=== PATIENT | male | born 1935 | race Caucasian/White ===

== ENCOUNTER 2018-08-07 16:05 | Emergency (ER) | payer MEDICARE, OTHER, SELFPAY ==
[2018-08-07 16:09] VITALS: BP 215/84; PULSE 82; RESP 20; TEMP 37.1; O2SAT 97; BMI 29.2
--- NOTE | 2018-08-07 16:25 | DI.RAD.S_ITS ---
PROCEDURE: XR CHEST 1V INDICATIONS: chest pain TECHNIQUE: One view of the chest was acquired. COMPARISON: None. FINDINGS: Surgical changes and devices: None. Lungs and pleura: Poor respiratory effort is present. Minimal increased pulmonary vascularity is present. No pleural effusions or pneumothorax. Mediastinum: Mediastinal contours appear normal. Heart size is normal. Bones and chest wall: No suspicious bony lesions. Overlying soft tissues appear unremarkable. IMPRESSION: Minimal increased pulmonary vascularity suggestive of edema. Dictated by: Kacey Olivia M.D. on 08/07/2018 at 16:42 Approved by: Kacey Olivia M.D. on 08/07/2018 at 16:43
[2018-08-07 17:02] VITALS: BP 177/70; PULSE 68; RESP 18; O2SAT 98
--- NOTE | 2018-08-07 17:12 | ED.EPISTAXIS ---
HPI - Epistaxis General Chief complaint: Hypertension Stated complaint: nose bleed that wont stop Time Seen by Provider: 08/07/18 16:25 Source: patient Mode of arrival: ambulatory Limitations: no limitations History of Present Illness HPI Narrative: Patient is an 83-year-old male presents with a nosebleed. He said his nose bleed started last night he got it. It is irregular this morning he got it to stop. Does blood pressure has been up and down throughout the day he had it systolic recorded as high as 180 however in the ED he has a systolic above 200. He denies any chest pain shortness of breath heart palpitations dizziness lightheadedness or headache. He has not had recurrent nose bleed. His blood pressure is decreased in the ED to 131/58. He overall is feeling better. He is just wanted make sure his nose would not start bleeding again. Location: right nostril Related Data Home Medications Medication Instructions Recorded Confirmed [EUCERIN] #0 02/27/11 02/15/18 aspirin 81 mg PO QDAY #0 08/15/17 02/15/18 atorvastatin [Lipitor] 20 mg PO HS #0 08/15/17 02/15/18 clonidine HCl 0.2 mg PO BID #0 08/15/17 02/15/18 Test Strips - Freestyle #1 ea 02/15/18 Previous Rx's Medication Instructions Recorded amlodipine 10 mg PO QDAY #90 tab 04/13/17 fluocinonide 1 adrian TOPICAL QDAY #60 ml 05/15/17 valsartan [Diovan] 320 mg PO QDAY #90 tab 07/09/17 Lancet: Device BID #180 08/15/17 triamcinolone acetonide 0.1 % 1 applictn TOP DAILY PRN #30 gram 02/15/18 topical cream furosemide 20 mg tablet 20 mg PO BID #60 tab 03/06/18 potassium chloride ER 10 mEq 10 meq PO BID #60 tab 03/06/18 tablet,extended release finasteride 5 mg tablet 5 mg PO QPM #90 tab 08/01/18 Allergies Allergy/AdvReac Type Severity Reaction Status Date / Time No Known Drug Allergies Allergy Verified 08/07/18 16:17 Review of Systems Review of Systems GENERAL: Denies chills, fatigue, malaise, fever, sweats, travel HEENT: See HPI RESPIRATORY: Denies dyspnea, cough, wheezing, hemoptysis, sputum. CARDIOVASCULAR: Denies chest pain, palpitations, orthopnea, edema GASTROINTESTINAL: Denies nausea, vomiting, abdominal pain, diarrhea, constipation, melena. : Denies dysuria, frequency, incontinence, hematuria, urinary retention, flank pain. MUSCULOSKELETAL: Denies weakness, joint pain, or bony pain SKIN: No rash, no erythema, no pruritus NEUROLOGIC: Denies weakness, dizziness, headache, numbness, change in speech, confusion PSYCHIATRIC: No concerning psychosocial issues. 12 point review of systems is negative except for those stated above and HPI [facility] Medical History Arthritis (Chronic Unknown) BPH (benign prostatic hyperplasia) (Chronic Unknown) Dermatitis (Chronic Unknown) Diabetes (Chronic Unknown) Eczema (Chronic Unknown) Hyperlipemia (Chronic Unknown) Hypertension (Chronic Unknown) Family History Brother Diabetes mellitus Obesity Brother Emphysema lung Father No problems noted. Mother No problems noted. Sister Emphysema lung Cancer Social History Smoking Status: Former smoker Tobacco: How many years used: 20 alcohol intake: current (1 beer per week) Exam Initial Vital Signs Initial Vital Signs: Vital Signs Temperature 98.7 F 08/07/18 16:09 Pulse Rate 82 08/07/18 16:09 Respiratory Rate 20 08/07/18 16:09 Blood Pressure 215/84 H 08/07/18 16:09 Pulse Oximetry 97 08/07/18 16:09 GENERAL: Appears younger than stated age alert male no acute distress HEENT: Head atraumatic,EOMI, pupils reactive, face symmetric, moist mucous membranes. No active bleeding in nose no site of bleeding CARDIOVASCULAR: Regular rate and rhythm without murmurs, rubs or gallops. RESPIRATORY: Breath sounds equal bilaterally, no wheezes rales or rhonchi. ABDOMEN: Soft, nontender. Normoactive bowel sounds all 4 quadrants. No guarding or rebound. EXTREMITIES: Normal range of motion, no clubbing or edema. Neurovascularly intact NEUROLOGICAL: Alert and oriented x4.Normal gait and speech. Cranial nerves II through XII grossly intact. SKIN: Warm, dry, no laceration, no petechiae, no rashes or lesions. Course Orders Ordered: ED Orders 08/07/18 16:25 XR chest 1V Stat Discontinued Medications Sodium Chloride (Normal Saline 0.9%) 1,000 mls @ 150 mls/hr IV CONT FARIDA Vital Signs - 8 hr 08/07/18 16:09 08/07/18 17:02 Temperature 98.7 F Pulse Rate 82 68 Respiratory Rate 20 18 Blood Pressure 215/84 H Blood Pressure [Left Arm] 177/70 H Pulse Oximetry 97 98 MDM - Epistaxis Imaging Data Chest x-ray: Radiologist's impression: [address] [address] XRay Report Signed Patient: Anselmo Clark MR#: [id number] : 1935 Acct:[id number] Age/Sex: 83 / M Date of Service: 08/07/18 Loc: ED Accession Number: [id number] Procedure: XR chest 1V Ordering Provider: Erna Marshall D.O. PROCEDURE: XR CHEST 1V INDICATIONS: chest pain TECHNIQUE: One view of the chest was acquired. COMPARISON: None. FINDINGS: Surgical changes and devices: None. Lungs and pleura: Poor respiratory effort is present. Minimal increased pulmonary vascularity is present. No pleural effusions or pneumothorax. Mediastinum: Mediastinal contours appear normal. Heart size is normal. Bones and chest wall: No suspicious bony lesions. Overlying soft tissues appear unremarkable. IMPRESSION: Minimal increased pulmonary vascularity suggestive of edema. Dictated by: Kacey Olivia M.D. on 08/07/2018 at 16:42 Approved by: Kacey Olivia M.D. on 08/07/2018 at 16:43 [facility] Narrative Medical decision making narrative: The patient blood pressure has returned to normal he has had multiple normal reading in the ED. The initial 1 was quite elevated. I have looked at his recorded blood pressures they do seem slightly elevated which may or may not be contributing to his bloody nose. His epistaxis is controlled no source of bleeding now. Patient has no chest pain shortness of breath headache or other signs of hypertension. At this time no indication for further evaluation or workup. Patient feels ready and able to go home. Discharge Plan Departure Patient Disposition: Home Clinical Impression: Hypertension, Epistaxis Discharge Date/Time: 12/26/18 17:29 Interventions: ED Discharge Assessment Last Done: 08/07/18 17:29 Instructions: DI for High Blood Pressure Activity Restrictions/Additional Instructions: *You have been diagnosed with nose bleed, hypertension *What to do: May need better blood pressure control, please discuss this with her primary care provider. At this time her blood pressure has returned to normal. If you should have return of nose bleed please placed clamp on nose for 30-60 minutes of tilt head forward. *Continue to take medications as directed *Follow up with your primary care provider in 2-3 days *Return to ER if you should have nose bleed that does not stop, significant elevation in blood pressure with top number over 200 or any new, worsening or concerning symptoms Prescriptions: No Action Test Strips - Freestyle .ROUTE .MEDSUPPLY Qty: 1 RF: 0 triamcinolone acetonide 0.1 % cream 1 applictn TOP DAILY PRN (Reason: itching) Qty: 30 RF: 2 [EUCERIN] Qty: 0 RF: 0 amlodipine 10 MG tablet 10 mg PO QDAY Qty: 90 RF: 0 fluocinonide 0.05 % solution 1 adrian Topical QDAY Qty: 60 RF: 1 valsartan [Diovan] 320 MG tablet 320 mg PO QDAY Qty: 90 RF: 0 atorvastatin [Lipitor] 20 MG tablet 20 mg PO HS Qty: 0 RF: 0 clonidine HCl 0.2 MG tablet 0.2 mg PO BID Qty: 0 RF: 0 aspirin 81 MG tablet,delayed release (DR/EC) 81 mg PO QDAY Qty: 0 RF: 0 Lancet: Device BID Qty: 180 RF: 3 furosemide [Lasix] 20 mg tablet 20 mg PO BID Qty: 60 RF: 6 potassium chloride 10 mEq tablet extended release 10 meq PO BID Qty: 60 RF: 6 finasteride 5 mg tablet 5 mg PO QPM Qty: 90 RF: 0 Referrals: Thuy Wiley DO [Physician] -
--- NOTE | 2018-08-07 17:18 | ED_ITS ---
HPI - Epistaxis General Chief complaint: Hypertension Stated complaint: nose bleed that wont stop Time Seen by Provider: 08/07/18 16:25 Source: patient Mode of arrival: ambulatory Limitations: no limitations History of Present Illness HPI Narrative: Patient is an 83-year-old male presents with a nosebleed. He said his nose bleed started last night he got it. It is irregular this morning he got it to stop. Does blood pressure has been up and down throughout the day he had it systolic recorded as high as 180 however in the ED he has a systolic above 200. He denies any chest pain shortness of breath heart palpitations dizziness lightheadedness or headache. He has not had recurrent nose bleed. His blood pressure is decreased in the ED to 131/58. He overall is feeling better. He is just wanted make sure his nose would not start bleeding again. Location: right nostril Related Data Home Medications Medication Instructions Recorded Confirmed [EUCERIN] #0 02/27/11 02/15/18 aspirin 81 mg PO QDAY #0 08/15/17 02/15/18 atorvastatin [Lipitor] 20 mg PO HS #0 08/15/17 02/15/18 clonidine HCl 0.2 mg PO BID #0 08/15/17 02/15/18 Test Strips - Freestyle #1 ea 02/15/18 Previous Rx's Medication Instructions Recorded amlodipine 10 mg PO QDAY #90 tab 04/13/17 fluocinonide 1 adrian TOPICAL QDAY #60 ml 05/15/17 valsartan [Diovan] 320 mg PO QDAY #90 tab 07/09/17 Lancet: Device BID #180 08/15/17 triamcinolone acetonide 0.1 % 1 applictn TOP DAILY PRN #30 gram 02/15/18 topical cream furosemide 20 mg tablet 20 mg PO BID #60 tab 03/06/18 potassium chloride ER 10 mEq 10 meq PO BID #60 tab 03/06/18 tablet,extended release finasteride 5 mg tablet 5 mg PO QPM #90 tab 08/01/18 Allergies Allergy/AdvReac Type Severity Reaction Status Date / Time No Known Drug Allergies Allergy Verified 08/07/18 16:17 Review of Systems Review of Systems GENERAL: Denies chills, fatigue, malaise, fever, sweats, travel HEENT: See HPI RESPIRATORY: Denies dyspnea, cough, wheezing, hemoptysis, sputum. CARDIOVASCULAR: Denies chest pain, palpitations, orthopnea, edema GASTROINTESTINAL: Denies nausea, vomiting, abdominal pain, diarrhea, constipation, melena. : Denies dysuria, frequency, incontinence, hematuria, urinary retention, flank pain. MUSCULOSKELETAL: Denies weakness, joint pain, or bony pain SKIN: No rash, no erythema, no pruritus NEUROLOGIC: Denies weakness, dizziness, headache, numbness, change in speech, confusion PSYCHIATRIC: No concerning psychosocial issues. 12 point review of systems is negative except for those stated above and HPI [facility] Medical History Arthritis (Chronic Unknown) BPH (benign prostatic hyperplasia) (Chronic Unknown) Dermatitis (Chronic Unknown) Diabetes (Chronic Unknown) Eczema (Chronic Unknown) Hyperlipemia (Chronic Unknown) Hypertension (Chronic Unknown) Family History Brother Diabetes mellitus Obesity Brother Emphysema lung Father No problems noted. Mother No problems noted. Sister Emphysema lung Cancer Social History Smoking Status: Former smoker Tobacco: How many years used: 20 alcohol intake: current (1 beer per week) Exam Initial Vital Signs Initial Vital Signs: Vital Signs Temperature 98.7 F 08/07/18 16:09 Pulse Rate 82 08/07/18 16:09 Respiratory Rate 20 08/07/18 16:09 Blood Pressure 215/84 H 08/07/18 16:09 Pulse Oximetry 97 08/07/18 16:09 GENERAL: Appears younger than stated age alert male no acute distress HEENT: Head atraumatic,EOMI, pupils reactive, face symmetric, moist mucous membranes. No active bleeding in nose no site of bleeding CARDIOVASCULAR: Regular rate and rhythm without murmurs, rubs or gallops. RESPIRATORY: Breath sounds equal bilaterally, no wheezes rales or rhonchi. ABDOMEN: Soft, nontender. Normoactive bowel sounds all 4 quadrants. No guarding or rebound. EXTREMITIES: Normal range of motion, no clubbing or edema. Neurovascularly intact NEUROLOGICAL: Alert and oriented x4.Normal gait and speech. Cranial nerves II through XII grossly intact. SKIN: Warm, dry, no laceration, no petechiae, no rashes or lesions. Course Orders Ordered: ED Orders 08/07/18 16:25 XR chest 1V Stat Discontinued Medications Sodium Chloride (Normal Saline 0.9%) 1,000 mls @ 150 mls/hr IV CONT FARIDA Vital Signs - 8 hr 08/07/18 16:09 08/07/18 17:02 Temperature 98.7 F Pulse Rate 82 68 Respiratory Rate 20 18 Blood Pressure 215/84 H Blood Pressure [Left Arm] 177/70 H Pulse Oximetry 97 98 MDM - Epistaxis Imaging Data Chest x-ray: Radiologist's impression: [address] [address] XRay Report Signed Patient: Anselmo Clark MR#: [id number] : 1935 Acct:[id number] Age/Sex: 83 / M Date of Service: 08/07/18 Loc: ED Accession Number: [id number] Procedure: XR chest 1V Ordering Provider: Erna Marshall D.O. PROCEDURE: XR CHEST 1V INDICATIONS: chest pain TECHNIQUE: One view of the chest was acquired. COMPARISON: None. FINDINGS: Surgical changes and devices: None. Lungs and pleura: Poor respiratory effort is present. Minimal increased pulmonary vascularity is present. No pleural effusions or pneumothorax. Mediastinum: Mediastinal contours appear normal. Heart size is normal. Bones and chest wall: No suspicious bony lesions. Overlying soft tissues appear unremarkable. IMPRESSION: Minimal increased pulmonary vascularity suggestive of edema. Dictated by: Kacey Olivia M.D. on 08/07/2018 at 16:42 Approved by: Kacey Olivia M.D. on 08/07/2018 at 16:43 [facility] [place] Narrative Medical decision making narrative: The patient blood pressure has returned to normal he has had multiple normal reading in the ED. The initial 1 was quite elevated. I have looked at his recorded blood pressures they do seem slightly elevated which may or may not be contributing to his bloody nose. His epistaxis is controlled no source of bleeding now. Patient has no chest pain shortness of breath headache or other signs of hypertension. At this time no indication for further evaluation or workup. Patient feels ready and able to go home. Discharge Plan Departure Patient Disposition: Home Clinical Impression: Hypertension, Epistaxis Discharge Date/Time: 12/26/18 17:29 Interventions: ED Discharge Assessment Last Done: 08/07/18 17:29 Instructions: DI for High Blood Pressure Activity Restrictions/Additional Instructions: *You have been diagnosed with nose bleed, hypertension *What to do: May need better blood pressure control, please discuss this with her primary care provider. At this time her blood pressure has returned to normal. If you should have return of nose bleed please placed clamp on nose for 30-60 minutes of tilt head forward. *Continue to take medications as directed *Follow up with your primary care provider in 2-3 days *Return to ER if you should have nose bleed that does not stop, significant elevation in blood pressure with top number over 200 or any new, worsening or concerning symptoms Prescriptions: No Action Test Strips - Freestyle .ROUTE .MEDSUPPLY Qty: 1 RF: 0 triamcinolone acetonide 0.1 % cream 1 applictn TOP DAILY PRN (Reason: itching) Qty: 30 RF: 2 [EUCERIN] Qty: 0 RF: 0 amlodipine 10 MG tablet 10 mg PO QDAY Qty: 90 RF: 0 fluocinonide 0.05 % solution 1 adrian Topical QDAY Qty: 60 RF: 1 valsartan [Diovan] 320 MG tablet 320 mg PO QDAY Qty: 90 RF: 0 atorvastatin [Lipitor] 20 MG tablet 20 mg PO HS Qty: 0 RF: 0 clonidine HCl 0.2 MG tablet 0.2 mg PO BID Qty: 0 RF: 0 aspirin 81 MG tablet,delayed release (DR/EC) 81 mg PO QDAY Qty: 0 RF: 0 Lancet: Device BID Qty: 180 RF: 3 furosemide [Lasix] 20 mg tablet 20 mg PO BID Qty: 60 RF: 6 potassium chloride 10 mEq tablet extended release 10 meq PO BID Qty: 60 RF: 6 finasteride 5 mg tablet 5 mg PO QPM Qty: 90 RF: 0 Referrals: Thuy Wiley DO [Physician] -
== END 2018-08-07 17:29 | disposition home or self-care (01) ==
PROVIDERS: Emergency Provider Emergency Medicine
DX: R04.0 Epistaxis (principal); I10 Essential (primary) hypertension
CPT/HCPCS: 71045; 99282; 99283

== ENCOUNTER → 2019-10-24 13:52 | Outpatient (CLI) | payer MEDICARE, OTHER, SELFPAY ==
[2019-10-24 18:05] LABS: Creatinine Urine Random 90.7 mg/dL
[2019-10-24 18:19] LABS: Protein (Total) Urine Random > 600 mg/dL (0-12); Protein Creatinine Ratio Urine 6.61 GRAM/24H
== END ==
PROVIDERS: PCP Family Medicine; Referring Provider Family Medicine; Visit Provider Family Medicine
DX: Z51.81 Encounter for therapeutic drug level monitoring (principal); E11.9 Type 2 diabetes mellitus without complications; I10 Essential (primary) hypertension
CPT/HCPCS: 82570; 84156

== ENCOUNTER → 2020-04-21 10:39 | Outpatient (CLI) | payer MEDICARE, OTHER, SELFPAY ==
[2020-04-21 11:51] LABS: Hemoglobin A1C% w Est Avg Glu 6.9 % (4.0-6.0)
== END ==
PROVIDERS: PCP Family Medicine; Referring Provider Family Medicine; Visit Provider Family Medicine
DX: E11.9 Type 2 diabetes mellitus without complications (principal); E78.5 Hyperlipidemia, unspecified; I10 Essential (primary) hypertension
CPT/HCPCS: 36415; 83036

== ENCOUNTER → 2020-10-08 12:15 | Outpatient (CLI) | payer MEDICARE, OTHER, SELFPAY ==
[2020-10-08 14:20] LABS: Alanine Aminotransferase 22 IU/L (<50); Albumin 3.8 g/dL (3.5-5.0); Alkaline Phosphatase 91 U/L (38-126); Aspartate Aminotransferase 30 IU/L (17-59); BUN Creatinine Ratio 20.2 (6-22); Bilirubin Total 0.4 mg/dL (0.2-1.3); Blood Urea Nitrogen 19 mg/dL (9-20); Calcium 9.1 mg/dL (8.4-10.2); Carbon Dioxide 29 mmol/L (22-32); Chloride 102 mmol/L (98-107); Cholesterol 141 mg/dL (140-199); Estimated Glomerular Filt Rate > 60.0 mL/min (>60); Globulin 3.7 g/dL (1.7-4.1); Glucose 184 mg/dL (80-110); HDL Cholesterol 39 mg/dL (40-60); HEMOLYSIS < 15 (0-50); LDL Cholesterol Calculated 61 mg/dL (<100); Potassium 3.5 mmol/L (3.4-5.1); Sodium 137 mmol/L (137-145); Total Protein 7.5 g/dL (6.3-8.2); Triglycerides 204 mg/dL (35-150)
[2020-10-08 14:46] LABS: Prostate Specific Antigen Scrn 1.39 ng/mL (0.1-4.0)
== END ==
PROVIDERS: PCP Family Medicine; Referring Provider Family Medicine; Visit Provider Family Medicine
DX: E11.9 Type 2 diabetes mellitus without complications (principal); Z12.11 Encounter for screening for malignant neoplasm of colon; E78.5 Hyperlipidemia, unspecified; I10 Essential (primary) hypertension; N40.0 Benign prostatic hyperplasia without lower urinary tract symptoms
CPT/HCPCS: 36415; 80053; 80061; G0103

== ENCOUNTER → 2020-10-11 12:13 | Outpatient (CLI) | payer MEDICARE, OTHER, SELFPAY ==
[2020-10-12 12:39] LABS: Fecal Immunochemical Test Negative (Negative)
== END ==
PROVIDERS: PCP Family Medicine; Referring Provider Family Medicine; Visit Provider Family Medicine
DX: E11.9 Type 2 diabetes mellitus without complications (principal); E78.5 Hyperlipidemia, unspecified; I10 Essential (primary) hypertension; Z12.11 Encounter for screening for malignant neoplasm of colon
CPT/HCPCS: 82274

== ENCOUNTER → 2021-06-20 13:36 | Outpatient (CLI) | payer MEDICARE, OTHER, SELFPAY ==
[2021-06-20 15:15] LABS: Creatinine Urine Random 87.1 mg/dL
[2021-06-20 15:17] LABS: Alanine Aminotransferase 21 IU/L (<50); Albumin 3.8 g/dL (3.5-5.0); Albumin Globulin Ratio 1.1 (1.0-2.8); Alkaline Phosphatase 92 U/L (38-126); Aspartate Aminotransferase 30 IU/L (17-59); BUN Creatinine Ratio 17.4 (6-22); Bilirubin Total 0.6 mg/dL (0.2-1.3); Blood Urea Nitrogen 21 mg/dL (9-20); Calcium 9.6 mg/dL (8.4-10.2); Carbon Dioxide 29 mmol/L (22-32); Chloride 102 mmol/L (98-107); Estimated Glomerular Filt Rate 57.3 mL/min (>60); Globulin 3.5 g/dL (1.7-4.1); Glucose 157 mg/dL (80-110); HEMOLYSIS < 15 (0-50); Sodium 140 mmol/L (137-145); Total Protein 7.3 g/dL (6.3-8.2)
[2021-06-20 16:13] LABS: Microalbumi Creatinin Ratio Ur 16670.4 ug/mg CR (<30)
== END ==
PROVIDERS: PCP Family Medicine; Referring Provider Family Medicine; Visit Provider Family Medicine
DX: E11.9 Type 2 diabetes mellitus without complications (principal); E78.5 Hyperlipidemia, unspecified; I10 Essential (primary) hypertension
CPT/HCPCS: 36415; 80053; 82043; 82570; 83036

== ENCOUNTER → 2021-10-11 09:09 | Outpatient (CLI) | payer MEDICARE, OTHER, SELFPAY ==
[2021-10-11 10:45] LABS: Add Manual Diff / Slide Review NO; Basophils Absolute Auto 100 /uL (0-100); Eosinophils Absolute Auto 200 /uL (0-450); Eosinophils Percent Auto 1.8 % (2-4); Hematocrit 38.4 % (41-53); Hemoglobin 13.3 g/dL (13.5-17.5); Lymphocytes Absolute Auto 1600 /uL (1100-4500); Lymphocytes Percent Auto 16.7 % (25-40); Mean Corpuscular HGB Conc 34.7 % (30-36); Mean Corpuscular Hemoglobin 30.2 PG (26-34); Mean Corpuscular Volume 87.2 fL (80-100); Monocytes Absolute Auto 500 /uL (0-900); Monocytes Percent Auto 5.6 % (3-14); Neutrophils Absolute Auto 7200 /uL (1500-7000); Neutrophils Percent Auto 74.9 % (50-75); Platelet Count 266 X10^3/uL (150-400); Red Cell Distribution Width 12.7 % (11.6-14.8); White Blood Cell Count 9.6 X10^3/uL (4.5-11.0)
[2021-10-11 11:10] LABS: Hemoglobin A1C% w Est Avg Glu 7.1 % (4.0-6.0)
[2021-10-11 11:44] LABS: Blood Urea Nitrogen 23 mg/dL (9-20); Carbon Dioxide 29 mmol/L (22-32); Chloride 103 mmol/L (98-107); Sodium 138 mmol/L (137-145)
[2021-10-11 11:45] LABS: Alanine Aminotransferase 16 IU/L (<50); Albumin 3.7 g/dL (3.5-5.0); Alkaline Phosphatase 85 U/L (38-126); Aspartate Aminotransferase 24 IU/L (17-59); BUN Creatinine Ratio 18.4 (6-22); Bilirubin Total 0.3 mg/dL (0.2-1.3); Calcium 9.2 mg/dL (8.4-10.2); Cholesterol 148 mg/dL (140-199); Globulin 3.6 g/dL (1.7-4.1); Glucose 141 mg/dL (80-110); HDL Cholesterol 48 mg/dL (40-60); HEMOLYSIS < 15 (0-50); LDL Cholesterol Calculated 78 mg/dL (<100); Total Protein 7.3 g/dL (6.3-8.2); Triglycerides 108 mg/dL (35-150); Uric Acid 5.7 mg/dL (3.5-8.5)
[2021-10-11 12:21] LABS: TSH w/ Reflex to FT4 2.17 uIU/mL (0.47-4.68)
[2021-10-11 13:18] LABS: Appearance Urine UA CLEAR; Bilirubin Urine UA NEGATIVE (NEGATIVE); Color Urine UA YELLOW; Glucose Urine UA TRACE g/dL (Negative); Ketones Urine UA NEGATIVE (NEGATIVE); Leukocyte Esterase Urine UA NEGATIVE (NEGATIVE); Nitrite Urine UA NEGATIVE (Negative); Occult Blood Urine UA TRACE-INTACT (Negative); Protein Urine UA 3+ (Negative); Urobilinogen Urine UA 0.2 E.U./dL (0.2); pH Urine UA 6.5 (4.5-8.0)
[2021-10-11 13:38] LABS: Bacteria Urine Few (2-10); Culture Indicated Urine Cult Not Indicated; RBC Urine 0-1/HPF (0-5/HPF); WBC Urine 1-5/HPF (0-5/HPF)
== END ==
PROVIDERS: PCP Family Medicine; Referring Provider Family Medicine; Visit Provider Family Medicine
DX: E11.9 Type 2 diabetes mellitus without complications (principal); E78.5 Hyperlipidemia, unspecified; I10 Essential (primary) hypertension; M19.90 Unspecified osteoarthritis, unspecified site
CPT/HCPCS: 36415; 80053; 80061; 81001; 83036; 84443; 84550; 85025

== ENCOUNTER → 2021-10-17 12:50 | Outpatient (CLI) | payer MEDICARE, OTHER, SELFPAY ==
[2021-10-17 16:56] LABS: COVID19 -Nasal RAPID Negative (Negative)
== END ==
PROVIDERS: PCP Family Medicine; Visit Provider Family Medicine Sleep Medicine
DX: Z20.822 Contact with and (suspected) exposure to COVID-19 (principal)
CPT/HCPCS: 87635; C9803

== ENCOUNTER → 2021-10-19 08:36 | Outpatient (CLI) | payer MEDICARE, OTHER, SELFPAY ==
--- NOTE | 2021-10-19 08:39 | DI.ECHO.S_ITS ---
[facility] +---------+ : : [address] : : : : [id number] : : : : Phone: [phone] Echocardiogram Report + + :Name: FREDERICK COX Study Date: 10/19/2021 Height: 64 in : :[facility] ReadingLocation: Weight: 165 lb : : Gender: Male BSA: 1.8 m2 : :: 1935 Age: 86 yrs BP: 186/90 mmHg: :Reason For Study: FORMER SMOKER : :Ordering Physician: RM, : :FRANCES Monzon Performed By: Crystal Jorgensen : :Referring: FRANCES SAMUEL : + + Interpretation Summary The ejection fraction is estimated to be 55-60%. Grade II diastolic dysfuntion. The right ventricle is normal in size and function. The left atrium is mildly dilated. There is mild mitral regurgitation. Pulmonary artery pressures cannot be estimated because of the lack of a measurable TR jet velocity. Procedure: A two-dimensional transthoracic echocardiogram with color flow and Doppler was performed. The study quality was technically adequate. There is no prior echocardiogram noted for this patient. The patient was in sinus rhythm with heart rates between 65-83 bpm during the exam. Left Ventricle: The left ventricle is normal in size and wall thickness. The ejection fraction is estimated to be 55-60%. Grade II diastolic dysfuntion. Right Ventricle: The right ventricle is normal in size and function. Atria: The left atrium is mildly dilated. Right atrial size is normal. There is no Doppler evidence for an interatrial shunt. Mitral Valve: The mitral valve is normal in structure and function. There is mild mitral regurgitation. Aortic Valve: The aortic valve is trileaflet. The aortic valve opens well. There is no aortic valve stenosis. No aortic regurgitation is present. Tricuspid Valve: The tricuspid valve is normal in structure and function. There is trace tricuspid regurgitation. Pulmonary artery pressures cannot be estimated because of the lack of a measurable TR jet velocity. Pulmonic Valve: The pulmonic valve leaflets are thin and pliable; valve motion is normal. There is mild pulmonic regurgitation. Great Vessels: The aortic root is normal size. The ascending aorta is normal in size. The inferior vena cava was not well visualized. The IVC is of normal diameter and collapses greater than 50% with a sniff. This suggests a low right atrial pressure of 3 mm Hg. Pericardium/ Pleura There is no pericardial effusion. There is no pleural effusion. MMode/2D Measurements & Calculations LVIDd: 4.2 cm LVOT diam: 1.9 cm LVIDs: 3.1 cm Ao root diam: 3.4 cm FS: 26.7 % asc Aorta Diam: 3.3 cm IVSd: 1.0 cm Ao Arch Diam (Prox Trans): 3.0 cm LVPWd: 0.69 cm LV schneider. diameter/BSA (cm/m^2): 2.4 LV sys. diameter/BSA (cm/m^2): 1.7 LA A2 area: 23.1 cm2 RA long axis: 5.2 cm LA A4 area: 17.3 cm2 RA area: 13.8 cm2 LA length (vol): 5.3 cm RA vol: 31.2 ml LA vol: 63.6 ml RA : 17.3 ml/m2 LA vol index: 35.3 ml/m2 IVC diam: 1.2 cm RVD1 (basal): 3.3 cm RVD2 (mid): 3.3 cm TAPSE: 2.3 cm Doppler Measurements & Calculations Ao V2 max: 136.2 cm/sec LVOT Max Robbie: 107.9 cm/sec Ao V2 mean: 90.6 cm/sec LV V1 max P.7 mmHg Ao max P.4 mmHg LV V1 VTI: 23.4 cm Ao mean P.8 mmHg RJ(I,D): 2.2 cm2 Ao V2 VTI: 30.3 cm RJ(V,D): 2.3 cm2 sev ratio: 0.77 RJ indexed to BSA (cm^2/m^2): 1.2 MV E max robbie: 86.8 cm/sec PA V2 max: 112.0 cm/sec MV A max robbie: 130.8 cm/sec PA V2 mean: 72.0 cm/sec MV E/A: 0.66 PA mean P.4 mmHg Med Peak E' Robbie: 4.5 cm/sec PA pr(Accel): 37.9 mmHg E/E' med: 19.2 Lat Peak E' Robbie: 5.9 cm/sec E/E' lat: 14.8 E/e' average: 17.0 MV dec time: 0.29 sec SVLVOT): 66.8 ml Reading Physician:01:37 PM
--- NOTE | 2021-10-19 08:41 | DI.US.S_ITS ---
PROCEDURE: US RETRO PERITONEAL LIMITED INDICATIONS: Aneurysm screening, history of tobacco use TECHNIQUE: Real-time scanning was performed of the retroperitoneal organs, with image documentation. COMPARISON: None. FINDINGS: The proximal aorta measures up to 1.7 centimeters in diameter. The mid abdominal aorta measures 1.9 centimeters in diameter. The distal abdominal aorta measures 1.6 centimeters in diameter. The right and left common iliac arteries measure approximately 1 centimeter in diameter. There is diffuse atherosclerotic plaque and calcification throughout the aorta and common iliac arteries. IMPRESSION: No aortic or common iliac artery aneurysm. Dictated by: Srinath Cross M.D. on 10/19/2021 at 13:45 Approved by: Srinath Cross M.D. on 10/19/2021 at 13:46
--- NOTE | 2021-10-19 15:33 | PM.TREADMILL ---
Cardiac Stress Test Report Referral & Results Indication: shortness of breath on exertion Rest ECG: NSR with rare pvc Procedure Note: NM treadmill Impression: standard jagjit protocol 4:26, 7.0 mets, GERALDO -3%, fair exercise capacity, normal hemodynamic response to exercise, max HR 161 (139% of target HR achieved) rest ECG normal with rare pvc noted, artifact during test made intepretation difficult, sinus rhythm with no ST abnormalities noted, rare pvc,pac noted in recovery. Esdras HURTADO. Please note: Actual ECG tracings can be found in the PACS system.
--- NOTE | 2021-10-19 18:29 | DI.NM.S_ITS ---
DATE OF SERVICE: 10/19/2021 PROCEDURE: Exercise perfusion study. INDICATION: Dyspnea with underlying hypertension and hyperlipidemia. RADIOPHARMACEUTICAL: 24.4 millicurie technetium-99m Myoview IV was injected at stress and 11.7 millicurie technetium-99m Myoview IV was injected at rest. CARDIAC STRESS: The patient underwent exercise perfusion study under the supervision of an attending staff. The patient walked on Eros protocol for 4 minutes and 26 seconds, achieved 7 METs of workload, GERALDO -3 percent and 118 percent of target heart rate. Baseline blood pressure 140/90 mmHg. Maximum blood pressure 202/110 mmHg, suggestive of hypertensive blood pressure response. Maximum heart rate of 161 beats per minute. Baseline rhythm was sinus. During stress, there were no convincing ischemic changes. In recovery, there were some isolated PVCs without any ventricular tachycardia. No obvious atrial fibrillation seen. Enhanced chronotropic response, as well as late recovery. At 5 minutes in recovery, heart rate was 105 beats per minute. The patient had shortness of breath and leg pain during exercise. RAW DATA: There is increased subdiaphragmatic activity. Soft tissue shadow seen near the inferior border of the heart. GATED STUDY: Stress LV ejection fraction 68 percent without any obvious wall motion abnormalities. Resting end-diastolic volume 80 mL. TID ratio 1.09, which is within normal limits. Lung/heart ratio 0.32, which is within normal limits. MYOCARDIAL PERFUSION SCAN: Stress supine, resting supine and stress prone images were compared to each other. Stress supine and resting supine images revealed moderate-size, moderate to severely decreased perfusion of inferior wall, extending into the inferolateral wall and lateral apex which got significantly improved during stress prone images, suggestive of tissue attenuation artifact. No convincing ischemia or infarction pattern seen. CONCLUSION: I will call this study likely a normal myocardial perfusion study with evidence of tissue attenuation artifact which got resolved during exercise stress prone images. Details, as stated above. GERALDO -3 percent. Hypertensive blood pressure response. Preserved left ventricular function. Enhanced chronotropic response, as well as delayed recovery of heart rate. The patient felt shortness of breath and leg pain. As far as perfusion scan is concerned, this is a low-risk myocardial perfusion scan. Anselmo Clark - Ray/gwendolyn doc#: [id number]/job#: [id number] dd: 10/19/2021 17:14:00 dt: 10/19/2021 18:07:00 DICTATING MD/COPIES TO: Lacy Taylor MD COPIES MNE: LINDA;
== END ==
PROVIDERS: PCP Family Medicine; Referring Provider Internal Medicine Cardiovascular Disease; Visit Provider Internal Medicine Cardiovascular Disease
DX: I34.0 Nonrheumatic mitral (valve) insufficiency (principal); I37.1 Nonrheumatic pulmonary valve insufficiency; Z13.6 Encounter for screening for cardiovascular disorders; R06.00 Dyspnea, unspecified; R06.02 Shortness of breath; I10 Essential (primary) hypertension; E78.5 Hyperlipidemia, unspecified; Z87.891 Personal history of nicotine dependence
CPT/HCPCS: 76775; 78452; 93017; 93306; A9502

== ENCOUNTER → 2022-01-12 09:01 | Outpatient (CLI) | payer MEDICARE, OTHER, SELFPAY ==
[2022-01-12 10:02] LABS: HEMOLYSIS < 15 (0-50); Iron 89 ug/dL (49-181)
[2022-01-12 10:03] LABS: Alanine Aminotransferase 19 IU/L (<50); Albumin 4.5 g/dL (3.5-5.0); Albumin Globulin Ratio 1.1 (1.0-2.8); Alkaline Phosphatase 125 U/L (38-126); Aspartate Aminotransferase 31 IU/L (17-59); BUN Creatinine Ratio 21.5 (6-22); Bilirubin Total 0.6 mg/dL (0.2-1.3); Blood Urea Nitrogen 32 mg/dL (9-20); Calcium 9.4 mg/dL (8.4-10.2); Carbon Dioxide 25 mmol/L (22-32); Chloride 104 mmol/L (98-107); Estimated Glomerular Filt Rate 46 mL/min (>60); Globulin 4.2 g/dL (1.7-4.1); Glucose 151 mg/dL (80-110); HEMOLYSIS < 15 (0-50); Potassium 3.9 mmol/L (3.4-5.1); Sodium 140 mmol/L (137-145); Total Protein 8.7 g/dL (6.3-8.2)
[2022-01-12 10:15] LABS: Percent Iron Saturation 29 % (20-50); Total Iron Binding Capacity 308 ug/dL (261-462); Transferrin 224 mg/dL (206-381)
[2022-01-12 10:54] LABS: Vitamin B12 653 pg/mL (239-931)
[2022-01-12 12:14] LABS: Microalbumi Creatinin Ratio Ur 22870.3 ug/mg CR (<30)
== END ==
PROVIDERS: PCP Family Medicine; Referring Provider Family Medicine; Visit Provider Family Medicine
DX: E11.9 Type 2 diabetes mellitus without complications (principal); I10 Essential (primary) hypertension; N28.9 Disorder of kidney and ureter, unspecified
CPT/HCPCS: 36415; 80053; 82043; 82570; 82607; 83036; 83540; 83550

== ENCOUNTER → 2022-04-07 16:28 | Outpatient (CLI) | payer MEDICARE, OTHER, SELFPAY ==
[2022-04-07 16:48] LABS: Add Manual Diff / Slide Review NO; Basophils Absolute Auto 100 /uL (0-100); Basophils Percent Auto 1.1 % (0-2); Eosinophils Absolute Auto 300 /uL (0-450); Eosinophils Percent Auto 2.9 % (2-4); Hematocrit 36.7 % (41-53); Hemoglobin 13.1 g/dL (13.5-17.5); Lymphocytes Absolute Auto 2500 /uL (1100-4500); Lymphocytes Percent Auto 24.1 % (25-40); Mean Corpuscular HGB Conc 35.6 % (30-36); Mean Corpuscular Hemoglobin 31.2 PG (26-34); Mean Corpuscular Volume 87.6 fL (80-100); Monocytes Absolute Auto 900 /uL (0-900); Monocytes Percent Auto 8.4 % (3-14); Neutrophils Absolute Auto 6600 /uL (1500-7000); Neutrophils Percent Auto 63.5 % (50-75); Platelet Count 292 X10^3/uL (150-400); Red Blood Cell Count 4.19 X10^6/uL (4.5-5.9); Red Cell Distribution Width 12.7 % (11.6-14.8); White Blood Cell Count 10.4 X10^3/uL (4.5-11.0)
[2022-04-07 17:27] LABS: Alanine Aminotransferase 17 IU/L (<50); Albumin Globulin Ratio 1.1 (1.0-2.8); Alkaline Phosphatase 96 U/L (38-126); Aspartate Aminotransferase 26 IU/L (17-59); BUN Creatinine Ratio 21.2 (6-22); Bilirubin Total 0.3 mg/dL (0.2-1.3); Blood Urea Nitrogen 36 mg/dL (9-20); Calcium 8.7 mg/dL (8.4-10.2); Carbon Dioxide 27 mmol/L (22-32); Chloride 102 mmol/L (98-107); Estimated Glomerular Filt Rate 39 mL/min (>60); Globulin 3.8 g/dL (1.7-4.1); Glucose 201 mg/dL (80-110); HEMOLYSIS < 15 (0-50); Potassium 3.5 mmol/L (3.4-5.1); Sodium 139 mmol/L (137-145); Total Protein 7.8 g/dL (6.3-8.2)
[2022-04-07 17:28] LABS: Creatinine Urine Random 81.9 mg/dL
[2022-04-07 18:30] LABS: Protein (Total) Urine Random 1291 mg/dL (0-12); Protein Creatinine Ratio Urine 15.76 GRAM/24H
== END ==
PROVIDERS: PCP Family Medicine; Referring Provider Internal Medicine Nephrology; Visit Provider Internal Medicine Nephrology
DX: N28.9 Disorder of kidney and ureter, unspecified (principal); E11.9 Type 2 diabetes mellitus without complications; I10 Essential (primary) hypertension
CPT/HCPCS: 36415; 80053; 82570; 83036; 84156; 85025

== ENCOUNTER → 2022-04-13 12:23 | Outpatient (CLI) | payer MEDICARE, OTHER, SELFPAY ==
[2022-04-13 14:47] LABS: BUN Creatinine Ratio 16.9 (6-22); Blood Urea Nitrogen 30 mg/dL (9-20); Carbon Dioxide 27 mmol/L (22-32); Chloride 103 mmol/L (98-107); Estimated Glomerular Filt Rate 37 mL/min (>60); Glucose 112 mg/dL (80-110); HEMOLYSIS < 15 (0-50); Potassium 4.2 mmol/L (3.4-5.1); Sodium 138 mmol/L (137-145)
[2022-04-13 16:23] LABS: Creatinine Urine Random 81.7 mg/dL
[2022-04-13 18:01] LABS: Microalbumi Creatinin Ratio Ur 15838.4 ug/mg CR (<30)
== END ==
PROVIDERS: PCP Family Medicine; Referring Provider Internal Medicine Nephrology; Visit Provider Internal Medicine Nephrology
DX: N28.9 Disorder of kidney and ureter, unspecified (principal)
CPT/HCPCS: 36415; 80048; 82043; 82570

== ENCOUNTER → 2024-03-27 14:01 | Outpatient (CLI) | payer MEDICARE, OTHER, SELFPAY ==
[2024-03-27 15:14] LABS: Hematocrit 33.9 % (41-53); Hemoglobin 11.7 g/dL (13.5-17.5); Mean Corpuscular HGB Conc 34.6 % (30-36); Mean Corpuscular Hemoglobin 31.6 PG (26-34); Mean Corpuscular Volume 91.3 fL (80-100); Platelet Count 216 X10^3/uL (150-400); Red Blood Cell Count 3.71 X10^6/uL (4.5-5.9); Red Cell Distribution Width 13.6 % (11.6-14.8); White Blood Cell Count 9.3 X10^3/uL (4.5-11.0)
[2024-03-27 16:46] LABS: Hemoglobin A1C% w Est Avg Glu 6.5 % (4.0-6.0)
== END ==
LOC: LAB 14:02
PROVIDERS: PCP Family Medicine; Referring Provider Family Medicine; Visit Provider Family Medicine
DX: E11.9 Type 2 diabetes mellitus without complications (principal); I10 Essential (primary) hypertension
CPT/HCPCS: 36415; 83036; 85027

== ENCOUNTER → 2024-12-22 14:52 | Outpatient (CLI) | payer MEDICARE, OTHER, SELFPAY ==
[2024-12-22 15:40] LABS: Hemoglobin A1C% w Est Avg Glu 6.1 % (4.0-6.0)
[2024-12-22 15:50] LABS: Alanine Aminotransferase 15 IU/L (<50); Albumin 4.5 g/dL (3.5-5.0); Albumin Globulin Ratio 2.4 (1.0-2.8); Alkaline Phosphatase 72 U/L (38-126); Aspartate Aminotransferase 21 IU/L (17-59); BUN Creatinine Ratio 19.7 (6-22); Bilirubin Total 0.5 mg/dL (0.2-1.3); Blood Urea Nitrogen 58 mg/dL (9-20); Calcium 9.7 mg/dL (8.4-10.2); Carbon Dioxide 23 mmol/L (22-32); Chloride 103 mmol/L (98-107); Estimated Glomerular Filt Rate 20 mL/min (>60); Globulin 1.9 g/dL (1.7-4.1); Glucose 112 mg/dL (70-99); HEMOLYSIS < 15 (0-50); Sodium 137 mmol/L (137-145); Total Protein 6.4 g/dL (6.3-8.2)
[2024-12-22 15:51] LABS: Potassium 5.4 mmol/L (3.4-5.1)
[2024-12-22 16:22] LABS: Prostate Specific Antigen Scrn 0.847 ng/mL (0.1-4.0)
== END ==
PROVIDERS: PCP Family Medicine; Referring Provider Family Medicine; Visit Provider Family Medicine
DX: E11.9 Type 2 diabetes mellitus without complications (principal); Z12.5 Encounter for screening for malignant neoplasm of prostate; N18.9 Chronic kidney disease, unspecified; N40.0 Benign prostatic hyperplasia without lower urinary tract symptoms; E78.5 Hyperlipidemia, unspecified; I12.9 Hypertensive chronic kidney disease with stage 1 through stage 4 chronic kidney disease, or unspecified chronic kidney disease
CPT/HCPCS: 36415; 80053; 83036; G0103

== ENCOUNTER → 2025-01-30 08:44 | Outpatient (CLI) | payer MEDICARE, OTHER, SELFPAY ==
[2025-01-30 09:52] LABS: Alanine Aminotransferase 12 IU/L (<50); Albumin Globulin Ratio 2.1 (1.0-2.8); Alkaline Phosphatase 62 U/L (38-126); Aspartate Aminotransferase 17 IU/L (17-59); BUN Creatinine Ratio 19.1 (6-22); Bilirubin Total 0.5 mg/dL (0.2-1.3); Blood Urea Nitrogen 55 mg/dL (9-20); Calcium 9.2 mg/dL (8.4-10.2); Carbon Dioxide 23 mmol/L (22-32); Chloride 106 mmol/L (98-107); Estimated Glomerular Filt Rate 20 mL/min (>60); Globulin 1.9 g/dL (1.7-4.1); Glucose 116 mg/dL (70-99); HEMOLYSIS < 15 (0-50); Potassium 5.1 mmol/L (3.4-5.1); Sodium 138 mmol/L (137-145); Total Protein 5.9 g/dL (6.3-8.2)
== END ==
PROVIDERS: PCP Family Medicine; Referring Provider Family Medicine; Visit Provider Family Medicine
DX: I12.9 Hypertensive chronic kidney disease with stage 1 through stage 4 chronic kidney disease, or unspecified chronic kidney disease (principal); N18.4 Chronic kidney disease, stage 4 (severe); R79.9 Abnormal finding of blood chemistry, unspecified
CPT/HCPCS: 36415; 80053

== ENCOUNTER → 2025-02-10 14:50 | Outpatient (CLI) | payer MEDICARE, OTHER, SELFPAY ==
--- NOTE | 2025-02-10 14:51 | DI.ECHO.S_ITS ---
[facility]+ [facility] : : [address] : : [place] : : [id number] : : Phone: [phone] Echocardiogram Report + + :Name: FREDERICK COX Study Date: 02/10/2025 Height: 64 in : :[facility] ReadingLocation: Weight: 164 lb : : Gender: Male BSA: 1.8 m2 : :: 1935 Age: 89 yrs BP: 155/78 mmHg: :Reason For Study: SCREENING : :Ordering Physician: MICHELLE, : :BHARGAVI Performed By: Crytsal Jorgensen : :Referring: BHARGAVI MARTINEZ : + + Interpretation Summary The ejection fraction is estimated to be 55-60%. There is no significant valvular heart disease. Procedure: A two-dimensional transthoracic echocardiogram with color flow and Doppler was performed. The study quality was technically adequate. Comparison is made with the echocardiogram of 10/19/2021. The heart rate ranged between 56-63 bpm during the study. Left Ventricle: The left ventricle is normal in size and wall thickness. The ejection fraction is estimated to be 55-60%. Left ventricular wall motion is normal. Right Ventricle: The right ventricle is normal in size and function. Atria: The left atrial size is normal. Right atrial size is normal. There is no Doppler evidence for an interatrial shunt. Mitral Valve: The mitral valve leaflets appear to open well. There is trace mitral regurgitation. Aortic Valve: The aortic valve is trileaflet. The aortic valve opens well. There is no aortic valve stenosis. No aortic regurgitation is present. Tricuspid Valve: The tricuspid valve leaflets are thin and pliable. There is trace tricuspid regurgitation. Pulmonary artery pressures cannot be estimated because of the lack of a measurable TR jet velocity but the IVC suggests a CVP of around 3 mmHg. Pulmonic Valve: The pulmonic valve leaflets are thin and pliable; valve motion is normal. There is mild pulmonic regurgitation. Great Vessels: The aortic root is normal size. The dimensions of the ascending aorta are normal. The IVC is of normal diameter and collapses greater than 50% with a sniff. This suggests a low right atrial pressure of 3 mm Hg. Pericardium/ Pleura There is no pericardial effusion. There is no pleural effusion. MMode/2D Measurements & Calculations LVIDd: 3.7 cm LVOT diam: 2.0 cm LVIDs: 2.8 cm Ao root diam: 3.3 cm FS: 25.0 % asc Aorta Diam: 3.2 cm IVSd: 0.95 cm Ao Arch Diam (Prox Trans): 2.9 cm LVPWd: 0.87 cm LV cshneider. diameter/BSA (cm/m^2): 2.1 LV sys. diameter/BSA (cm/m^2): 1.6 LA A2 area: 16.8 cm2 RA long axis: 4.1 cm LA A4 area: 14.6 cm2 RA area: 9.3 cm2 LA length (vol): 5.4 cm RA vol: 17.8 ml LA vol: 38.8 ml RA : 9.9 ml/m2 LA vol index: 21.6 ml/m2 IVC diam: 1.6 cm RVD1 (basal): 3.6 cm RVD2 (mid): 3.5 cm TAPSE: 1.8 cm Doppler Measurements & Calculations Ao V2 max: 136.6 cm/sec LVOT Max Robbie: 99.1 cm/sec Ao V2 mean: 89.8 cm/sec LV V1 max P.9 mmHg Ao max P.5 mmHg LV V1 VTI: 25.9 cm Ao mean P.7 mmHg RJ(I,D): 2.5 cm2 Ao V2 VTI: 31.3 cm RJ(V,D): 2.2 cm2 sev ratio: 0.83 RJ indexed to BSA (cm^2/m^2): 1.4 MV E max robbie: 72.3 cm/sec PA V2 max: 96.2 cm/sec MV A max robbie: 113.2 cm/sec PA V2 mean: 68.2 cm/sec MV E/A: 0.64 PA mean P.1 mmHg Med Peak E' Robbie: 5.9 cm/sec PA pr(Accel): 39.2 mmHg E/E' med: 12.3 Lat Peak E' Robbie: 5.4 cm/sec E/E' lat: 13.3 E/e' average: 12.8 MV dec time: 0.37 sec Pulm A Revs Robbie: 24.1 cm/sec SV(LVOT): 78.6 ml Pulm A Revs Dur: 0.13 sec Reading Physician:02:[id number] PM
== END ==
PROVIDERS: PCP Family Medicine; Referring Provider Family Medicine; Visit Provider Family Medicine
DX: I37.1 Nonrheumatic pulmonary valve insufficiency (principal); R06.09 Other forms of dyspnea
CPT/HCPCS: 93306

== ENCOUNTER → 2025-06-25 13:50 | Outpatient (CLI) | payer MEDICARE, OTHER, SELFPAY ==
[2025-06-25 14:43] LABS: Add Manual Diff / Slide Review NO; Hematocrit 34.9 % (41-53); Hemoglobin 12.0 g/dL (13.5-17.5); Lymphocytes Absolute Auto 800 /uL (1100-4500); Mean Corpuscular HGB Conc 34.3 % (30-36); Mean Corpuscular Hemoglobin 30.2 PG (26-34); Mean Corpuscular Volume 87.9 fL (80-100); Platelet Count 244 X10^3/uL (150-400)
[2025-06-25 14:56] LABS: Hemoglobin A1C% w Est Avg Glu 6.1 % (4.0-6.0)
[2025-06-25 15:14] LABS: HEMOLYSIS < 15 (0-50); Iron 80 ug/dL (49-181)
[2025-06-25 15:16] LABS: Alanine Aminotransferase 14 IU/L (<50); Albumin 4.6 g/dL (3.5-5.0); Albumin Globulin Ratio 2.0 (1.0-2.8); Alkaline Phosphatase 70 U/L (38-126); Blood Urea Nitrogen 60 mg/dL (9-20); Calcium 9.7 mg/dL (8.4-10.2); Carbon Dioxide 23 mmol/L (22-32); Chloride 104 mmol/L (98-107); Estimated Glomerular Filt Rate 19 mL/min (>60); Globulin 2.3 g/dL (1.7-4.1); Glucose 131 mg/dL (70-99); HEMOLYSIS < 15 (0-50); Potassium 4.9 mmol/L (3.4-5.1); Sodium 141 mmol/L (137-145); Total Protein 6.9 g/dL (6.3-8.2)
[2025-06-25 15:26] LABS: Percent Iron Saturation 28 % (20-50); Total Iron Binding Capacity 285 ug/dL (261-462); Transferrin 250 mg/dL (206-381)
[2025-06-25 15:30] LABS: Vitamin D 25 Hydroxy (D3) 45.8 ng/mL (30.0-100.0)
[2025-06-25 16:05] LABS: Vitamin B12 789 pg/mL (239-931)
== END ==
PROVIDERS: PCP Family Medicine; Referring Provider Family Medicine; Visit Provider Family Medicine
DX: C90.00 Multiple myeloma not having achieved remission (principal); E55.9 Vitamin D deficiency, unspecified; E11.9 Type 2 diabetes mellitus without complications; I12.9 Hypertensive chronic kidney disease with stage 1 through stage 4 chronic kidney disease, or unspecified chronic kidney disease; N18.4 Chronic kidney disease, stage 4 (severe)
CPT/HCPCS: 36415; 80053; 82306; 82607; 83036; 83540; 83550; 85025